=== PATIENT | female | born 1990 | race American Indian/Alaskan Native ===

== ENCOUNTER 2016-08-18 04:01 | Emergency (ER) | payer SELFPAY ==
[2016-08-18 04:10] VITALS: BP 120/76
--- NOTE | 2016-08-18 05:02 | XRay Report ---
FINAL REPORT PROCEDURE: X-RAY LEFT ANKLE FOUR VIEWS TECHNIQUE: Four films obtained which are in AP, lateral, 2 oblique views of the left ankle HISTORY: Left ankle pain after injury. Trauma COMPARISON: No prior studies are available for comparison. FINDINGS: Seen on the lateral view only there is a small subtle focal area of cortical disruption involving the posterior distal cortex of the tibia about 1.5 centimeters proximal to the end of the bone. This may be a subtle nondisplaced fracture. There is no plain film evidence possible fracture otherwise. There is some ill-defined subtle linear hyperdensity in the soft tissues between the distal tibia and fibula of uncertain significance. IMPRESSION: There is a very subtle small area of cortical irregularity or cortical step-off involving the posterior distal cortex of the tibia. This may be a small nondisplaced fracture.
[2016-08-18] MEDS ORDERED: MOTRIN PO ONE (05:29)
--- NOTE | 2016-08-18 05:34 | Emergency Department Report ---
ED Lower Extremity HPI - General Chief Complaint: Extremity Injury, Lower Stated Complaint: LF SWOLLEN ANKLE Time Seen by Provider: 08/18/16 05:21 Source: patient Mode of arrival: Ambulatory Limitations: No Limitations - History of Present Illness Initial Comments: 25-year-old -[place] female comes in today for complaint of left ankle. Patient reports she tripped about a month ago on 07/06/2016 and twisted her left ankle. Patient reports she's been dealing with her left ankle swelling and very painful. Patient reports that she has been elevating ice and an taken motion but hasn't been only improved. She reports than minimal movement of her toes causes her to have pain in her ankle that shoots up to her knee. MD Complaint: ankle injury -: month(s) (1) Injury: Ankle: Left Type of Injury: inversion Severity: moderate Severity scale (0 -10): 7 Improves With: nothing Worsens With: weight bearing, movement, palpation Associated Symptoms: swelling, able to partially bear weight Treatments Prior to Arrival: cold therapy, NSAIDS, other (elevation) - Related Data Previous Rx's Medication Instructions Recorded Last Taken Type HYDROcodone/APAP 5-325 [[place]gden 1 each PO Q6HR PRN #20 tablet 03/25/16 Unknown Rx 5/325] Mag Hydrox/Al Hydrox/Simeth 20 ml PO QID PRN #1 bottle 03/25/16 Unknown Rx [Maalox Advanced Suspension] Omeprazole Magnesium [PriLOSEC Otc] 20 mg PO QDAY #30 tablet. 03/25/16 Unknown Rx Ondansetron [Zofran Odt] 4 mg PO Q8HR PRN #20 tab.nathaly 03/25/16 Unknown Rx Ibuprofen [Motrin 800 MG tab] 800 mg PO Q8HR #60 tablet 08/18/16 Unknown Rx oxyCODONE /ACETAMINOPHEN [Percocet 1 tab PO Q6HR PRN #12 tablet 08/18/16 Unknown Rx 5/325] Allergies Allergy/AdvReac Type Severity Reaction Status Date / Time naproxen AdvReac Nausea Verified 03/25/16 18:12 ED Review of Systems ROS: Stated complaint: LF SWOLLEN ANKLE Other details as noted in HPI Constitutional: denies: chills, fever Eyes: denies: eye pain, eye discharge, vision change ENT: denies: ear pain, throat pain Musculoskeletal: joint swelling (left ankle), arthralgia (left ankle). denies: back pain Skin: denies: rash, lesions ED Past Medical Hx - Past Medical History Previous Medical History?: No Additional medical history: "umbalanced hormones",Sickle cell trait - Surgical History Past Surgical History?: No - Social History Smoking Status: Never Smoker Substance Use Type: None - Medications Home Medications: Home Medications Medication Instructions Recorded Confirmed Last Taken Type HYDROcodone/APAP 5-325 [Ogden 1 each PO Q6HR PRN #20 tablet 03/25/16 Unknown Rx 5/325] Mag Hydrox/Al Hydrox/Simeth 20 ml PO QID PRN #1 bottle 03/25/16 Unknown Rx [Maalox Advanced Suspension] Omeprazole Magnesium [PriLOSEC Otc] 20 mg PO QDAY #30 tablet.dr 03/25/16 Unknown Rx Ondansetron [Zofran Odt] 4 mg PO Q8HR PRN #20 tab.rapdis 03/25/16 Unknown Rx Ibuprofen [Motrin 800 MG tab] 800 mg PO Q8HR #60 tablet 08/18/16 Unknown Rx oxyCODONE /ACETAMINOPHEN [Percocet 1 tab PO Q6HR PRN #12 tablet 08/18/16 Unknown Rx 5/325] ED Physical Exam - General Limitations: No Limitations General appearance: alert, in no apparent distress - Head Head exam: Present: atraumatic, normocephalic - Eye Eye exam: Present: normal appearance, PERRL, EOMI - Expanded Lower Extremity Exam Left Lower Leg exam: Present: normal inspection, full ROM Ankle exam: Present: full ROM (with pain), tenderness, swelling Foot/Toe exam: Present: normal inspection, full ROM. Absent: tenderness, swelling Neuro vascular tendon exam: Present: no vascular compromise ED Course Vital Signs 08/18/16 04:07 Temperature 98.1 F Pulse Rate 66 Respiratory 18 Rate Blood Pressure 120/76 O2 Sat by Pulse 99 Oximetry ED Lower Extremity MDM - Radiology Data FINDINGS: Seen on the lateral view only there is a small subtle focal area of cortical disruption involving the posterior distal cortex of the tibia about 1.5 centimeters proximal to the end of the bone. This may be a subtle nondisplaced fracture. There is no plain film evidence possible fracture otherwise. There is some ill-defined subtle linear hyperdensity in the soft tissues between the distal tibia and fibula of uncertain significance. IMPRESSION: There is a very subtle small area of cortical irregularity or cortical step-off involving the posterior distal cortex of the tibia. This may be a small nondisplaced fracture. - Medical Decision Making Patient's been evaluated by this provider and fracture. Discussed the patient that there is a small fracture is nondisplaced. Discussed the patient we'll place her in a posterior splint crutches referral to orthopedics and prescription for pain medicine. Patient verbalized understanding. Critical care attestation.: If time is entered above; I have spent that time in minutes in the direct care of this critically ill patient, excluding procedure time. ED Disposition Clinical Impression: Fracture of distal end of tibia Qualifiers: Encounter type: initial encounter Fracture type: closed Fracture alignment: nondisplaced Laterality: left Disposition: DISCHARGED TO HOME OR SELFCARE Is pt being admited?: No Does the pt Need Aspirin: No Condition: Stable Instructions: Ankle Fracture (ED) Additional Instructions: Please take a pain medication as prescribed. It is very important for you to follow-up with orthopedics. I have listed several orthopedics that use may follow up with. Please use crutches to help ambulate. Prescriptions: Ibuprofen [Motrin 800 MG tab] 800 mg PO Q8HR #60 tablet oxyCODONE /ACETAMINOPHEN [Percocet 5/325] 1 tab PO Q6HR PRN #12 tablet PRN Reason: Pain Referrals: PRIMARY CAREMD [Primary Care Provider] - 3-5 Days VIRIDIANA PHAM MD [Staff Physician] - 3-5 Days [facility] [Provider Group] - 3-5 Days [facility] [Provider Group] - 3-5 Days Forms: Work/School Release Form(ED)
== END 2016-08-18 06:13 | disposition home or self-care (01) ==
LOC: ED 04:01
DX: S82.302A Unspecified fracture of lower end of left tibia, initial encounter for closed fracture (principal); X58.XXXA Exposure to other specified factors, initial encounter; Y93.9 Activity, unspecified; Y92.9 Unspecified place or not applicable; Y99.9 Unspecified external cause status
CPT/HCPCS: 99284

== ENCOUNTER 2016-08-20 21:40 | Emergency (ER) | payer SELFPAY ==
[2016-08-20] MEDS ORDERED: MOTRIN PO ONE (22:34)
--- NOTE | 2016-08-21 01:46 | Emergency Department Report ---
HPI - General Chief Complaint: Extremity Injury, Lower Time Seen by Provider: 08/21/16 01:31 - HPI HPI: Patient is a 25-year-old female who returns to the ED complaining of toe numbness and tingling 2 days. Patient states she was here on and was diagnosed with a fractured ankle and was placed in posterior leg splint. Patient states the next day she began to feel tingling and numbness in her toes that got worse. She came in to have cast removed. Patient states she felt better when the nurse in triage to have the cast. Sensation had the injuries every 2016 and was seen here 08/18/2016. Patient states she has not followed up with orthopedic. She did denies fevers/chills/nausea/vomiting/abdominal pain or any other problems. ED Past Medical Hx - Past Medical History Additional medical history: "umbalanced hormones",Sickle cell trait - Surgical History Past Surgical History?: No - Social History Smoking Status: Never Smoker Substance Use Type: None - Medications Home Medications: Home Medications Medication Instructions Recorded Confirmed Last Taken Type Mag Hydrox/Al Hydrox/Simeth 20 ml PO QID PRN #1 bottle 03/25/16 Unknown Rx [Maalox Advanced Suspension] Omeprazole Magnesium [PriLOSEC Otc] 20 mg PO QDAY #30 tablet. 03/25/16 Unknown Rx Ondansetron [Zofran Odt] 4 mg PO Q8HR PRN #20 tab.rapdis 03/25/16 Unknown Rx oxyCODONE /ACETAMINOPHEN [Percocet 1 tab PO Q6HR PRN #12 tablet 08/18/16 Unknown Rx 5/325] Ibuprofen [Motrin 800 MG tab] 800 mg PO Q8HR #60 tablet 08/21/16 Unknown Rx ED Review of Systems ROS: Stated complaint: LFT TOE NUMBNESS Other details as noted in HPI Constitutional: denies: chills, fever Eyes: denies: eye pain, eye discharge, vision change ENT: denies: ear pain, throat pain Respiratory: denies: cough, shortness of breath, wheezing Cardiovascular: denies: chest pain, palpitations Endocrine: no symptoms reported Gastrointestinal: denies: abdominal pain, nausea, diarrhea Genitourinary: denies: urgency, dysuria, discharge Musculoskeletal: denies: back pain, joint swelling, arthralgia Skin: denies: rash, lesions Neurological: numbness (left big toe). denies: headache, weakness, paresthesias , confusion Psychiatric: denies: anxiety, depression Hematological/Lymphatic: denies: easy bleeding, easy bruising Physical Exam - Physical Exam Vital Signs: Vital Signs 08/20/16 22:23 Temperature 98.2 F Pulse Rate 90 Respiratory 18 Rate Blood Pressure 146/83 Blood Pressure 146/83 [Left] O2 Sat by Pulse 99 Oximetry Physical Exam: GENERAL: Alert and oriented x3, no apparent distress, Normal Gait, atraumatic. HEAD: Head is normocephalic and a-traumatic. EYES: Extra ocular muscles are intact. Pupils are equal, round, and reactive to light and accommodation. LUNGS: Symetrical with respiration, No wheezing, no rales or crackles, CTAB. HEART: S1, S2 present, regular rate and rhythm without murmur, no rubs, no gallops. ABDOMEN: No organomegaly was noted,Positive bowel sounds, soft, and non- distended. . Nontender to palpation on all Quadrants, NO CVA tenderness. EXTREMITIES/MUSCULOSKELETAL: No cyanosis, clubbing, rash, lesions or edema. Full ROM bilaterally. UE/LE Pulses 2+ bilaterally. LE and UE 5+ strength bilaterally NEUROLOGIC: No focal Deficit, Cranial nerves II through XII are grossly intact. No loss of sensation, PSYCHIATRIC: Mood is congruent with affect, denies suicidal or homicidal ideations. SKIN: Warm and dry, No lesions, No ulceration or induration present. ED Course Vital Signs 08/20/16 22:23 Temperature 98.2 F Pulse Rate 90 Respiratory 18 Rate Blood Pressure 146/83 Blood Pressure 146/83 [Left] O2 Sat by Pulse 99 Oximetry ED Medical Decision Making - Medical Decision Making 25-year-old female presents to ED post evaluation of splinted leg aches ED course: Discussed with patient that we'll go ahead and put a short posterior splint on the left ankle and foot to stabilize it. Discussed the patient is very important to follow-up with orthopedic doctor. Discussed the patient to keep using crutches and stay off that foot. Discussed patient she may continue to ice to foot as needed. Discussed the patient that she injured foot above over a month ago and wasn't seen for that injury of weeks after initial injury. Vital signs are stable. Patient understands and states will follow-up. Critical care attestation.: If time is entered above; I have spent that time in minutes in the direct care of this critically ill patient, excluding procedure time. ED Disposition Clinical Impression: Foot pain, left Disposition: DISCHARGED TO HOME OR SELFCARE Is pt being admited?: No Does the pt Need Aspirin: No Condition: Stable Instructions: Ankle Fracture (ED), Crutch Instructions (ED), Splint Care (ED) Additional Instructions: Follow-up with orthopedic doctor Prescriptions: Ibuprofen [Motrin 800 MG tab] 800 mg PO Q8HR #60 tablet Referrals: PRIMARY CARE, [Primary Care Provider] - 3-5 Days VIRIDIANA PHAM MD [Staff Physician] - 3-5 Days Forms: Work/School Release Form Time of Disposition: 02:48
[2016-08-21 03:08] VITALS: BP 139/81
== END 2016-08-21 04:19 | disposition home or self-care (01) ==
LOC: ED 21:40
DX: M79.672 Pain in left foot (principal)
CPT/HCPCS: 99282